=== PATIENT | male | born 1950 | race African-American/Black ===

== ENCOUNTER 2023-10-15 14:47 | Emergency (ER) | payer OTHER ==
[~2023-10-15] VITALS: Ht 180.3 cm; Wt 73.0 kg
[2023-10-15] MEDS ORDERED: IPRATROPIUM BROM 0.5 MG/2.5ML INH SOL HHN ONE (15:45)
[2023-10-15] MEDS ORDERED: predniSONE 20 MG TAB PO ONE (15:45)
[2023-10-15] MEDS ORDERED: ALBUTEROL SULF 2.5 MG/0.5ML(0.5%) NEB SOLN HHN ONE (15:45)
[2023-10-15 15:51] LABS: Hematocrit 38.3 % (41.0-53.0); Mean Corpuscular Hemoglobin 27.9 pg (28.0-32.0); Mean Corpuscular Hgb Conc. 31.4 g/dL (32.0-36.0); Mean Corpuscular Volume 88.9 fL (80.0-100.0); Red Blood Cells 4.31 10^6/uL (4.5-5.90); Red Cell Distribution Width 14.9 % (11.8-14.3); White Blood Cell 8.9 10^3/uL (4.4-10.8)
[2023-10-15 15:52] LABS: Basophils % (manual) 0 (0.0-2.0); Blast Cells 0; Eosinophils % (manual) 0 (0-7); Metamyelocytes % 0; Myelocytes % 0; Promyelocytes % 0; Reactive Lymphocytes 0
[2023-10-15 16:01] LABS: Alanine Aminotransferase 72 U/L (7-40); Albumin 4.2 g/dL (3.2-4.8); Alkaline Phosphatase 153 U/L (46-116); Anion Gap 9 (5-15); Aspartate Aminotransferase 27 U/L (13-40); BUN/Creatinine Ratio 14.7 (10.0-20.0); Bilirubin, Total 0.4 mg/dL (0.2-1.0); Blood Urea Nitrogen 16 mg/dL (9-23); Calcium 8.9 mg/dL (8.7-10.4); Carbon Dioxide 23 mmol/L (20-30); Chloride 109 mmol/L (98-107); Glucose 111 mg/dL (74-106); Potassium 3.8 mmol/L (3.5-5.1); Sodium 141 mmol/L (136-145); Total Protein 6.6 g/dL (5.7-8.2)
[2023-10-15] MEDS ORDERED: ALBUTEROL MEDNEB 2.5 mg/3ml NEB ONE (16:07)
[2023-10-15 16:14] LABS: Band Neutrophils % (manual) 1; Lymphocytes % (manual) 44 (10.0-50.0); Monocytes % (manual) 4 (0-12)
[2023-10-15 16:15] LABS: Platelet Estimate Adequate
[2023-10-15] MEDS ORDERED: cefTRIAXone 1GM/50ML D5W 50 ML IV ONE (16:30)
[2023-10-15] MEDS ORDERED: AZITHROMYCIN 500MG/ 250ML 250 ML IV ONE (16:30)
[2023-10-15 16:38] LABS: Lactic Acid w/Reflex 2.5 mmol/L (0.4-2.0)
[2023-10-15] MEDS ORDERED: ALBU108A5 IN (19:01)
[2023-10-15] MEDS ORDERED: PRED20TA2 PO (19:01)
[2023-10-15] MEDS ORDERED: AZITTAB PO (19:01)
[2023-10-15 19:24] VITALS: TEMP 98.1
[2023-10-15 19:37] VITALS: O2SAT 97
[2023-10-15] MEDS ORDERED: SODIUM CHLORIDE 0.9% 1,000 ML IV ONE (22:00)
[2023-10-15 23:19] VITALS: BP 103/48; PULSE 76; RESP 12; O2SAT 97
== END 2023-10-15 23:40 | disposition home or self-care (01) ==
LOC: ER 14:47
DX: J18.9 Pneumonia, unspecified organism (principal); I10 Essential (primary) hypertension; J44.9 Chronic obstructive pulmonary disease, unspecified; R07.89 Other chest pain
CPT/HCPCS: 36415; 71046; 80053; 83605; 83735; 85007; 85027; 87040; 93005; 94640; 96361; 96365; 96367; 99285; J0456; J0696; J7030; J7512; J7644

== ENCOUNTER 2023-11-01 13:14 | Emergency (ER) | payer OTHER, MEDICAID ==
[~2023-11-01] VITALS: Ht 180.3 cm; Wt 69.0 kg
[~2023-11-01 13:14] MED LIST: ALBU108A5 IN; AZITTAB PO; PRED20TA2 PO
[2023-11-01 13:42] VITALS: BP 114/58; PULSE 93; RESP 16; O2SAT 95
== END 2023-11-01 16:49 | disposition left against medical advice (07) ==
LOC: ER 13:14
DX: R06.02 Shortness of breath (principal); Z53.21 Procedure and treatment not carried out due to patient leaving prior to being seen by health care provider